=== PATIENT | male | born 1980 | race Caucasian/White ===

== ENCOUNTER 2018-03-03 08:38 | Day surgery (SDC) | payer BC ==
--- NOTE | 2018-03-02 07:18 | HP ---
PREOPERATIVE HISTORY AND PHYSICAL EXAM: DATE OF SURGERY/ADMISSION: 03/03/18 ATTENDING SURGEON: Charleen Alford MD.* (DICTATED BY FERDINAND HARRIS) PROCEDURE: Right ring finger nerve repair, flexor tendon repair, middle finger exploration, possible nerve repair. CHIEF COMPLAINT: Lacerations to right hand. 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 He injured his right hand at home on 02/27/18. He was trying to close a window and the window would not stay shut. He tried to force it down and the frame broke and he put his hands through the broken glass. He was seen at the [facility] and had several lacerations sutured, most notably of his ring finger. Since the injury, he has had difficulty flexing the ring finger at the DIP joint and he has no sensation at the end of the finger. He also has decreased sensation at the end of the middle finger. He has been taking Keflex since being seen in the emergency room and is using hydrocodone for pain control. This is his dominant hand. He had x-rays taken at the [facility] and those showed no bony involvement and no sign of foreign body. He has consented to proceed with surgical intervention at this time. PAST MEDICAL HISTORY: 1. Hypertension. 2. Diabetes. 3. History of Montgomery's palsy. PAST SURGICAL HISTORY: Bailey teeth extraction. MEDICATIONS: 1. Amlodipine besylate 10 mg daily. 2. Glyburide-metformin 5-500 mg b.i.d. 3. Valsartan-hydrochlorothiazide 160-12.5 mg daily. ALLERGIES: No known drug allergies. FAMILY MEDICAL HISTORY: Diabetes, stroke, hypertension, hypercholesterolemia, COPD, CHF, atrial fibrillation. SOCIAL HISTORY: The patient is employed as a training officer at [employer]. He denies tobacco use and recreational drug use. He does drink alcohol on rare occasions. REVIEW OF SYSTEMS: General: Negative for fevers, chills, night sweats. No known anesthesia problems. No unexplained weight loss/gain. HEENT: Negative for headache, lightheadedness, syncopal episodes, visual changes. Integumentary : Positive for current complaint to right hand. Cardiothoracic: Negative for hypertension, chest pain, palpitations, edema. Respiratory: Negative for shortness of breath with exertion, chronic cough, wheezing. GI: Negative for nausea, vomiting, diarrhea, constipation, GERD. : Negative for nocturia, urinary frequency, urgency, history of UTIs, kidney problems. Musculoskeletal: Positive for current complaint. Negative for chronic or intermittent back pain , or history of fractures. Neurological: Negative for history of seizure, stroke, poor balance. Endocrine: Positive for diabetes. Negative for thyroid issues. Hematologic: Negative for easy bruising, anemia, bleeding disorders, history of DVT. Infectious Disease: Negative for history of MRSA, hepatitis C , HIV. PHYSICAL EXAMINATION GENERAL: Well-developed, well-nourished 38-year-old male, in no acute distress. VITAL SIGNS: Height 6 feet tall, weight 272 pounds, pulse rate 68, blood pressure 160/82. HEENT: Normocephalic, atraumatic. Pupils are equal, round, and reactive to light and accommodation. Extraocular movements are intact. Throat is clear. NECK: Supple. No palpable lymph nodes. PULMONARY: Lungs are clear to auscultation bilaterally. No wheezes, rales, or rhonchi. CARDIOVASCULAR: Regular rate and rhythm. S1, and S2. No murmurs, rubs, or gallops. No edema. ABDOMEN: Positive bowel sounds, soft, nontender. MUSCULOSKELETAL: On exam of his right hand, he has sutured lacerations of the middle and ring fingers and a laceration on the portion of the pad of his small finger. He has no active flexion of the ring finger DIP joint. He otherwise has normal motion in his fingers. He has decreased sensation on the ulnar border of the middle finger at the tip and at the distal aspect of the ring finger. He has full extension of his fingers. There is no erythema or other sign of infection. NEUROLOGICAL: Alert and oriented x3. Cranial nerves II through XII are intact. IMPRESSION: Right hand laceration of the middle, ring, and small fingers. PLAN: The patient is scheduled to undergo a right ring finger nerve repair, flexor tendon repair, middle finger exploration, possible nerve repair with Dr. Alford on 03/03/18. He will return to the office 10 days postop for followup and suture removal. A prescription for [place] was e-scribed to the patient's pharmacy for postoperative pain management. FERDINAND HARRIS [id number]/[facility] #: [id number] [facility] BRONX HOSPITALSaulo
[~2018-03-03 08:38] MED LIST: Buffered Lidocaine 0.9% SYRIN* 5 ML/SYR SYRINGE INTRADERM ONE; Sodium Citrate/Citric Acid* 15 ML UDC ONE; Sodium Citrate/Citric Acid* 15 ML UDC PO ONE; ceFAZolin 2 GM PREMIX (*) 0 GM/0 ML BAG IVPB ONE
[2018-03-03] MEDS ORDERED: fentaNYL* 50 MCG/ML 2 ML VIAL (100 MCG VIAL) IV PRN (09:37)
[2018-03-03] MEDS ORDERED: Naloxone* 0.4 MG/ML 1 ML VIAL IV PRN (09:37)
[2018-03-03] MEDS ORDERED: Ondansetron INJ* 2 MG/ML VIAL IV PRN (09:37)
[2018-03-03] MEDS ORDERED: Lidocaine 2% PF * 5 ML VIAL ONE (09:46)
[2018-03-03] MEDS ORDERED: Propofol* 10 MG/ML 20 ML BTL IV PUSH ONE ×2 (09:46→11:03)
[2018-03-03] MEDS ORDERED: fentaNYL* 50 MCG/ML 2 ML VIAL (100 MCG VIAL) ONE (09:46)
[2018-03-03] MEDS ORDERED: Ondansetron INJ* 2 MG/ML VIAL ONE (11:29)
[2018-03-03 12:23] VITALS: BP 120/63
--- NOTE | 2018-03-03 15:11 | OP ---
DATE OF OPERATION: 03/03/18 [facility] DATE OF : 82 SURGEON: Charleen Alford MD. ATHLETIC EQUIPMENT MANAGER: FERDINAND Valdivia. ANESTHESIA: General. PRE-OP DIAGNOSES: Right middle and ring finger laceration with digital nerve lacerations and flexor tendon laceration of the ring finger and a possible digital nerve laceration in the middle finger. POST-OP DIAGNOSES: Digital nerve lacerations both sides of the ring finger, flexor digitorum profundus laceration of the ring finger, volar plate laceration. OPERATIVE PROCEDURE: Right middle finger wound exploration, right ring finger digital nerve repair x2 and flexor digitorum profundus repair, volar plate repair. INDICATIONS FOR PROCEDURE: Jared is a 38-year-old male, who was trying to close the window and the window sash broke and he was then cut by the glass. He suffered lacerations of his middle, ring, and small fingers. The small finger laceration was just at the pad of the finger and there was no deficit. The ring finger has no active DIP flexion and no sensation distal to the laceration and he has decreased sensation distal to the middle finger laceration. He presents for wound exploration and repair. ESTIMATED BLOOD LOSS: Zero. TOURNIQUET TIME: About an hour. DESCRIPTION OF PROCEDURE: The patient was brought to the operating room, was given a general anesthetic and placed in the supine position on the operating table with a tourniquet around his right upper arm. The skin of his right upper extremity was prepped and draped in the usual sterile fashion. The hand and forearm were exsanguinated and the tourniquet elevated to 250 mmHg. The sutures were removed and the middle finger wound was explored. The digital nerve was intact, so the wound was irrigated and the skin edges reapproximated with 4-0 nylon suture. The sutures were removed. The ring finger was well and the wound was explored. The radial digital nerve was cut 50% and this was repaired in interrupted fashion with 8-0 nylon suture. The ulnar digital nerve was completely cut and also was repaired without any tension with 8-0 nylon suture in an interrupted fashion. The flexor digitorum profundus tendon was lacerated as was the volar plate. The volar plate was lacerated down to the joint and the joint was subluxing. The joint was held in reduction and then the volar plate was repaired with 4-0 Prolene suture and this eliminated the subluxation of the joint. Next, the tendon ends were reapproximated with 4- strand core suture of 4-0 Prolene and then epitendon was sutured with 6-0 nylon. This approximated the tendon ends very well and did not have any gaping with range of motion of the joint. The wound was irrigated and the skin edges were reapproximated with 4-0 nylon suture. The wounds were dressed with Xeroform , 4x4, Webril and an Stepan wrap with a dorsal extension blocking splint. The patient tolerated the procedure well and was brought to the recovery room in good condition. [id number]/[facility] #: [id number] DON
[2018-03-03] MEDS ORDERED: Lidocaine 1% INJ* 10 MG/ML 30 ML SDV ONE (15:40)
== END 2018-03-03 12:16 | disposition home or self-care (01) ==
LOC: OREAST 08:38
PROVIDERS: ATTEND Orthopaedic Surgery
DX: S64.494A Injury of digital nerve of right ring finger, initial encounter (principal); S66.124A Laceration of flexor muscle, fascia and tendon of right ring finger at wrist and hand level, initial encounter; S61.212A Laceration without foreign body of right middle finger without damage to nail, initial encounter; W25.XXXA Contact with sharp glass, initial encounter; Y93.89 Activity, other specified; Y92.009 Unspecified place in unspecified non-institutional (private) residence as the place of occurrence of the external cause; Z68.36 Body mass index [BMI] 36.0-36.9, adult; E11.9 Type 2 diabetes mellitus without complications; Z79.84 Long term (current) use of oral hypoglycemic drugs; I10 Essential (primary) hypertension
CPT/HCPCS: A9270-GY; J0690; J2405; J2704; J3010

== ENCOUNTER 2018-12-22 08:39 | Emergency (ER) | payer BC ==
--- NOTE | 2018-12-22 09:09 | UC ---
General HPI - HPI Summary HPI Summary: 38 yo gentleman c/o bilateral axillae pruritus, redness, folliculitis x last couple days. No fever / chills. Used a new deoderant, to which he attributes sx. Denies hx of this in the past. thinks tet utd, will check. No fever / chills. No sob / throat swelling. No GI issues. - History of Current Complaint Chief Complaint: UCSkin Stated Complaint: SKIN CONCERN Time Seen by Provider: 12/22/18 09:08 Hx Obtained From: Patient Pain Intensity: 1 - Allergy/Home Medications Allergies/Adverse Reactions: Allergies Allergy/AdvReac Type Severity Reaction Status Date / Time No Known Allergies Allergy Verified 12/22/18 08:53 PMH/Surg Hx/FS Hx/Imm Hx Previously Healthy: Yes - Surgical History Surgical History: Yes Surgery Procedure, Year, and Place: Right fourth finger tendon repair, 2018, [place] - Social History Alcohol Use: Rare Substance Use Type: None Smoking Status (MU): Never Smoked Tobacco Review of Systems All Other Systems Reviewed And Are Negative: Yes Constitutional: Positive: Negative Skin: Positive: Other - see hpi Eyes: Positive: Other - see hpi ENT: Positive: Other - see hpi Respiratory: Positive: Other - see hpi Cardiovascular: Positive: Other - see hpi Gastrointestinal: Positive: Other - see hpi Genitourinary: Positive: Negative Motor: Positive: Other - see hpi Neurovascular: Positive: Other Musculoskeletal: Positive: Other: - see hpi Neurological: Positive: Negative Psychological: Positive: Negative Is Patient Immunocompromised?: No Physical Exam Triage Information Reviewed: Yes Appearance: Well-Appearing, Well-Nourished Vital Signs: Initial Vital Signs Temp 98.7 F 12/22/18 08:51 Pulse 88 12/22/18 08:51 Resp 18 12/22/18 08:51 BP 164/85 12/22/18 08:51 Pulse Ox 97 12/22/18 08:51 Vital Signs Reviewed: Yes Eye Exam: Normal - grossly normal ENT Exam: Normal - grossly normal Neck exam: Normal Neck: Positive: Supple Respiratory Exam: Normal Respiratory: Positive: Chest non-tender, Lungs clear, Normal breath sounds, No respiratory distress, No accessory muscle use Cardiovascular Exam: Normal Cardiovascular: Positive: RRR, No Murmur, Pulses Normal, Brisk Capillary Refill Abdominal Exam: Normal Abdomen Description: Positive: Nontender Musculoskeletal Exam: Normal Neurological Exam: Normal - grossly normal Psychological Exam: Normal Skin Exam: Other - nondiaphoretic. Axillae - bilat scattered pustules, mild redness, flaky skin. Course/Dx - Course Course Of Treatment: Reviewed coa /tx plan. Questions as posed answered to the best of my ability. - Diagnoses Provider Diagnosis: Folliculitis, Dermatitis Discharge - Sign-Out/Discharge Documenting (check all that apply): Patient Departure All imaging exams completed and their final reports reviewed: No Studies - Discharge Plan Condition: Stable Disposition: HOME Prescriptions: Clotrimazole/Betamethasone* [Lotrisone Cream*] 1 applic TOPICAL BID 7 Days #1 tube DOXYcycline CAP(*) [DOXYcycline 100MG CAP(*)] 100 mg PO BID #14 cap Patient Education Materials: Contact Dermatitis (ED), Folliculitis (ED) Referrals: Marco Antonio CAMACHO,Idania Trotter [Primary Care Provider] - Additional Instructions: Avoid scented soaps, avoid astringents, minimize antibacterial soaps until symptoms improve. Please seek medical attention for worse or new problems. Check your tetanus immunization status to make sure up to date. Blood pressure today 164/84 - please have this rechecked within the next month. - Billing Disposition and Condition Condition: STABLE Disposition: Home
[2018-12-22 09:28] VITALS: BP 145/83
== END 2018-12-22 09:33 | disposition home or self-care (01) ==
LOC: UCCORT 08:39
DX: L73.9 Follicular disorder, unspecified (principal); L30.9 Dermatitis, unspecified
CPT/HCPCS: 99212; G0463

== ENCOUNTER 2019-02-28 18:17 | Emergency (ER) | payer BC ==
[2019-02-28 18:36] VITALS: BP 151/81
--- NOTE | 2019-02-28 19:04 | UC ---
Eye Complaint HPI - HPI Summary HPI Summary: Per marketing operations intern "right upper eyelid redness and swelling since 1300 today. no fever/chills. " -no trauma, no dc. no FB. no visual change. no pain. - History of Current Complaint Chief Complaint: UCSkin Stated Complaint: RIGHT EYE ISSUE Time Seen by Provider: 02/28/19 18:56 Pain Intensity: 2 - Allergies/Home Medications Allergies/Adverse Reactions: Allergies Allergy/AdvReac Type Severity Reaction Status Date / Time No Known Allergies Allergy Verified 02/28/19 18:30 PMH/Surg Hx/FS Hx/Imm Hx Previously Healthy: Yes Endocrine History: Diabetes Cardiovascular History: Hypertension - Surgical History Surgical History: Yes Surgery Procedure, Year, and Place: Right fourth finger tendon repair, 2018, [place] - Family History Known Family History: Positive: Hypertension - Social History Alcohol Use: Occasionally Substance Use Type: None Smoking Status (MU): Never Smoked Tobacco Review of Systems All Other Systems Reviewed And Are Negative: Yes Constitutional: Positive: Negative Skin: Positive: Negative Eyes: Negative: Blurred Vision, Diplopia, Eye Redness, Photophobia ENT: Positive: Negative Respiratory: Positive: Negative Cardiovascular: Positive: Negative Gastrointestinal: Positive: Negative Genitourinary: Positive: Negative Motor: Positive: Negative Neurovascular: Positive: Negative Musculoskeletal: Positive: Negative Neurological: Positive: Negative Psychological: Positive: Negative Is Patient Immunocompromised?: No Physical Exam Triage Information Reviewed: Yes Appearance: Well-Appearing, No Pain Distress, Well-Nourished Vital Signs: Initial Vital Signs Temp 96.1 F 02/28/19 18:31 Pulse 101 02/28/19 18:31 Resp 16 02/28/19 18:31 BP 151/81 02/28/19 18:31 Pulse Ox 97 02/28/19 18:31 Vital Signs Reviewed: Yes Eyes: Positive: Conjunctiva Clear, Other: - right upper lid with swelling and erythema. small area of stye developing. no FB.. Negative: Conjunctiva Inflamed , Discharge ENT Exam: Normal ENT: Positive: Pharynx normal Neck exam: Normal Neck: Positive: Supple, Nontender, No Lymphadenopathy Respiratory Exam: Normal Respiratory: Positive: Lungs clear Cardiovascular Exam: Normal Musculoskeletal Exam: Normal Neurological Exam: Normal Psychological Exam: Normal Skin Exam: Normal Eye Complaint Course/Dx - Course Course Of Treatment: Rt eye lid stye. -warm compresses. no trauma/FB or change in vision - Differential Dx/Diagnosis Differential Diagnosis/HQI/PQRI: Foreign Body Provider Diagnosis: Stye Discharge - Sign-Out/Discharge Documenting (check all that apply): Patient Departure All imaging exams completed and their final reports reviewed: No Studies - Discharge Plan Condition: Stable Disposition: HOME Patient Education Materials: Radha (ED) Referrals: No Primary Care Phys,NOPCP [Primary Care Provider] - Additional Instructions: Warm compresses. Follow up if symptoms do not improve or worsen. - Billing Disposition and Condition Condition: STABLE Disposition: Home
== END 2019-02-28 19:14 | disposition home or self-care (01) ==
LOC: UCCORT 18:17
DX: H00.011 Hordeolum externum right upper eyelid (principal); E11.9 Type 2 diabetes mellitus without complications; I10 Essential (primary) hypertension
CPT/HCPCS: 99211; G0463